=== PATIENT | male | born 1970 | race Caucasian/White ===

== ENCOUNTER 2019-12-09 16:00 | Outpatient (RCR) | payer OTHER, BC, SELFPAY | END 2019-12-11 23:59 | LOC: DC 16:00 | PROVIDERS: PCP Family Medicine; Visit Provider Family Medicine | DX: Z71.3 Dietary counseling and surveillance (principal); E11.9 Type 2 diabetes mellitus without complications | CPT/HCPCS: 97802; G0108 ==

== ENCOUNTER 2019-12-31 16:00 | Outpatient (RCR) | payer OTHER, BC, SELFPAY | END 2019-12-31 23:59 | disposition home or self-care (01) | LOC: DC 16:00 | PROVIDERS: PCP Family Medicine; Visit Provider Family Medicine | DX: Z71.3 Dietary counseling and surveillance (principal); E11.65 Type 2 diabetes mellitus with hyperglycemia | CPT/HCPCS: 97803; G0108 ==

== ENCOUNTER → 2020-04-01 | Outpatient (CLI) | payer OTHER, BC, SELFPAY ==
--- NOTE | 2020-04-01 11:15 | BON_PTH ---
PATIENT: MAGDALENA BOWEN LOC: [facility] U#:[id number] AGE/SX: 49/M ROOM: RE04/01/[address]: Dr. Chirag Lora MD : [id number] BED: DIS: 04/01/2020 SPEC #: [id number] RECD: 04/01/20 15:15 STATUS: DALIA RE #: [id number] JODIE: 04/01/20 11:[address]: Chirag Lora DEPT: SURGICAL PATHOLOGY RECD BY: Sunitha Sloan ENTERED: 04/04/20 07:27 SP TYPE: Bone OTHR DR: Dr. Ronni Ward MD [facility] Tissues: Bone of lower extremity, NOS Procedures: Decalcification bone/plaque Surgery Specimen Level IV HEADER OPERATION: Right total hip arthroplasty PRE-OP DIAGNOSIS: Posttraumatic arthritis right hip TISSUE SUBMITTED: Bone right hip MICROSCOPIC DIAGNOSIS Bone, right hip, hemiarthroplasty: Femoral head with degenerative osteoarthritic changes. Fragments of fibroconnective tissue, fibroadipose tissue, skeletal muscle tissue and reactive synovial tissue. SUKHJINDER:nisa 04/08/20 MICROSCOPIC DESCRIPTION Slides are reviewed. GROSS DESCRIPTION Received is one container labeled with the patient's name and designated right hip bone. The specimen consists of a femoral head with portion of femoral neck measuring 9 x 4.5 x 4.2 cm. Also present in the specimen container are multiple irregular fragments of admae-pink soft tissue measuring in aggregate 9 x 6 x 2 cm. The articular surface displays osteophyte formation. Focal bone erosion is identified in an area measuring 1 cm in greatest dimension. Nursing Unit Manager sections are submitted in two cassettes as follows: 1 - soft tissue, 2 - bone after decalcification. / AM:nisa 04/04/20 TC:5 CPT: 03107, 53501
== END | disposition home or self-care (01) ==
LOC: LABSPEC 15:58
PROVIDERS: PCP Family Medicine; Visit Provider Orthopaedic Surgery
DX: M16.51 Unilateral post-traumatic osteoarthritis, right hip (principal); T14.90XS Injury, unspecified, sequela; X58.XXXS Exposure to other specified factors, sequela
CPT/HCPCS: 88305; 88307; 88311

== ENCOUNTER → 2020-04-28 09:18 | Outpatient (CLI) | payer OTHER, BC, SELFPAY ==
[2020-05-01 16:07] LABS: QNTFERON TB Mitogen Value > 10.00 IU/mL (.); QNTFERON TB Nil Value 0.03 IU/mL (.); QNTFERON TB1+ Ag Value 0.03 IU/mL (.); QNTFERON TB2+ Ag Value 0.04 IU/mL (.)
[2020-05-02 21:00] LABS: QNTIFERON TB Positive Criteria Negative (Negative)
== END ==
PROVIDERS: PCP Family Medicine; Referring Provider Dermatology Pediatric Dermatology; Visit Provider Dermatology Pediatric Dermatology
DX: L40.0 Psoriasis vulgaris (principal); Z79.899 Other long term (current) drug therapy
CPT/HCPCS: 36415; 86480

== ENCOUNTER → 2020-12-19 15:59 | Outpatient (CLI) | payer OTHER, SELFPAY ==
[2020-12-19 19:46] LABS: Absolute Lymphocyte Count 2.43 X10^3/uL (0.83-4.51); Absolute Neutrophil Count 4.8 X10^3/uL (2.0-7.7); Basophil# 0.05 X10^3/uL; Basophil% 0.6 % (0-1); Eosinophil# 0.19 X10^3/uL; Eosinophils% 2.3 % (0-5); Hematocrit 42.4 % (40-54); Hemoglobin 14.3 g/dL (13.0-16.5); Lymphocyte # 2.43 X10^3/ul (0.83-4.51); Mean Corp Hgb Conc 33.7 g/dL (32-36); Mean Platelet Vol. 9.5 fl (6.2-12.0); Monocyte# 0.59 X10^3/uL; Monocyte% 7.3 % (0-10); NRBC Flagged by Analyzer 0 % (0-5); Neutrophil # 4.82 X10^3/uL (2.7-7.7); Neutrophil % 59.4 % (47-70); Platelet Count 341 K/mm3 (150-450); RBC Distribution Width CV 12.3 % (11.6-14.6); RBC Distribution Width SD 41.6 fl (35.1-43.9); Red Blood Count 4.61 M/mm3 (4.6-6.2); White Blood Count 8.1 K/mm3 (4.4-11.0)
[2020-12-19 20:06] LABS: ALB/GLOB Ratio 1.3 RATIO (0.9-2.4); AST(SGOT) 22 U/L (15-37); Alanine Aminotransfer ALT/SGPT 47 U/L (16-61); Albumin, Serum 4.2 g/dL (3.2-5.0); Alkaline Phosphatase 98 U/L (45-117); Anion Gap 9 (5-15); BUN 15 mg/dL (7-18); BUN/Creat Ratio 20.2 RATIO (10-20); Calcium,Total 8.9 mg/dL (8.5-10.1); Chloride 102 mmol/L (98-107); Creatinine, Serum 0.74 mg/dL (0.70-1.30); EST Glomerular Filtration Rate 118 mL/min (>60); Est Glom Filt Rate - Afr Amer 142 mL/min (>60); Globulin 3.3 g/dL (2.2-4.2); Glucose 247 mg/dL (74-106); Potassium 3.9 mmol/L (3.5-5.1); Protein, Total 7.5 g/dL (6.4-8.2); Sodium Level 135 mmol/L (136-145)
== END ==
PROVIDERS: PCP Family Medicine; Referring Provider Physician Assistant; Visit Provider Physician Assistant
DX: L40.0 Psoriasis vulgaris (principal); Z79.899 Other long term (current) drug therapy
CPT/HCPCS: 36415; 80053; 85025